=== PATIENT | female | born 1985 ===

== ENCOUNTER → 2017-10-19 19:49 | Observation (INO) ==
[2017-10-19 17:54] LABS: Basophils % 0.2 %; Eosinophils # 0.1 K/mcL (0.0-0.6); Eosinophils % 0.8 %; Hematocrit 36.1 % (35.3-44.9); Hemoglobin 11.4 g/dL (11.5-15.4); Immature Granulocytes % 0.3 % (0-4); Lymphocytes # 1.3 K/mcL (0.6-4.6); Lymphocytes % 15.2 %; Mean Corpuscular HGB Conc 31.6 g/dL (31.6-35.5); Mean Corpuscular Hemoglobin 27.5 pg (28.0-33.3); Monocytes # 0.5 K/mcL (0.0-1.3); Monocytes % 6.1 %; Neutrophils # 6.7 K/mcL (1.6-8.9); Platelet Count 148 K/mcL (140-400); Red Blood Count 4.14 M/mcL (3.82-4.97); Red Cell Distribution Width 13.4 % (11.5-14.5); Segmented Neutrophils % 77.4 %
--- NOTE | 2017-10-19 17:55 | OB/GYN Progress Note ---
Date of Encounter: 10/19/17 Time of Encounter: 17:48 - Assessment and Plan (1) Hypertension affecting in third trimester Current Visit: Yes Status: Acute Serial blood pressures PIH labs drawn and sent to lab (2) Drug use affecting in third trimester Current Visit: Yes Status: Acute Follow up with Dr. Hernandez for scheduled Subutex group (3) Vaginal bleeding in Current Visit: Yes Status: Acute Continuous monitoring SSE to evaluate vaginal bleeding. (4) 32 weeks gestation of Current Visit: Yes Status: Acute Continous monitoring. Draw labs PIH evaluation. Subjective - Subjective Principal diagnosis: Vaginal bleeding Interval history: Billie is a 32-year-old who presents at 32w3d for increased blood pressure in the office of 158/104, lower extremity swelling, and reports vaginal bleeding. Pt states vaginal bleeding occurred once today and once yesterday, pink when she wiped. Denies vaginal leakage, reports decreased movement. Pt is a heroin user, last used 1 week ago. Also takes Subutex and is involved in group here at [place]. Pt states she was seen at [facility] yesterday for the same complaints. Lower extremities bilateral 2+ pitting edema. LLE reflexes 2+, RLE reflexes 3+, no clonus. Antepartum ROS: vaginal bleeding, no loss of fluid, no movement normal, no contractions Objective - Vital Signs Vital Signs: Intake and Output 10/19/17 10/19/17 10/19/17 07:59 15:59 23:59 Other: Weight 78.5 kg Patient Weight 10/19/17 23:59 Weight 78.5 kg - Exam FHR: category 1 FHR comments: 140 bpm, moderate variability. Unable to determine accels due to broken tracing. Auscultation: bilateral: normal Abdomen: Present: normal appearance, soft, gravid Uterus: Present: normal Comments: Deferred SVE at time of note.
[2017-10-19 18:03] LABS: INR 1.1; Prothrombin Time 11.3 Seconds (9.4-12.1)
[2017-10-19 18:06] LABS: Activated Partial Thrombo Time 29.2 Seconds (26.0-36.0)
--- NOTE | 2017-10-19 18:16 | OB/GYN Progress Note ---
Date of Encounter: 10/19/17 Time of Encounter: 18:13 - Assessment and Plan (1) Hypertension affecting in third trimester Current Visit: Yes Status: Acute Serial blood pressures PIH labs drawn and sent to lab (2) Drug use affecting in third trimester Current Visit: Yes Status: Acute Follow up with Dr. Hernandez for scheduled Subutex group (3) Vaginal bleeding in Current Visit: Yes Status: Acute Continuous monitoring SSE to evaluate vaginal bleeding. (4) 32 weeks gestation of Current Visit: Yes Status: Acute Continous monitoring. Draw labs PIH evaluation. Subjective - Subjective Principal diagnosis: PIH evaluation Antepartum ROS: no new complaints Objective - Vital Signs Vital Signs: Intake and Output 10/19/17 10/19/17 10/19/17 07:59 15:59 23:59 Other: Weight 78.5 kg Patient Weight 10/19/17 23:59 Weight 78.5 kg - Exam FHR comments: 135 bpm, moderate variability. No accels, variable decel x 1. Irregular contractions. Cervical dilation: Closed Cervix effacement: Thick station: High Comments: SVE performed. Small amount of white discharge noted. Sample obtained for vaginosis panel.
[2017-10-19 18:24] LABS: Alanine Aminotransferase 17 Units/L (7-52); Aspartate Amino Transferase 37 Units/L (13-39); BUN/Creatinine Ratio 11 (6-26); Blood Urea Nitrogen 7 mg/dL (6-20); Lactate Dehydrogenase 168 Units/L (140-271); Uric Acid 5.2 mg/dL (2.3-7.6); eGFR For African Americans > 60 (> 60); eGFR For Non-African Americans > 60 (> 60)
[2017-10-19 18:26] LABS: Mean Corpuscular Volume 87.2 fL (83.0-100.0)
[2017-10-19 18:57] LABS: Bilirubin,Urine Negative (Negative); Blood,Urine Moderate (Negative); Clarity,Urine Cloudy (Clear); Color,Urine Yellow (Yellow); Glucose,Urine (UA) Normal (Normal); Ketones,Urine Negative (Negative); Leukocyte Esterase,Urine Negative (Negative); Nitrite,Urine Negative (Negative); Protein,Urine 100 mg/dL (Neg-Trace); Specific Gravity,Urine 1.015 (1.010-1.025); Urobilinogen,Urine Normal (Normal)
[2017-10-19 18:58] LABS: Bacteria,Urine None Seen per hpf (None-Few); Hyaline Casts,Urine None Seen per lpf (None-Few); RBC,Urine 30-50 per hpf (0-3); Squamous Epithelial Cell,Urine Many per lpf (None-Few)
[2017-10-19 19:04] LABS: Amphetamine Screen,Urine Negative ng/mL (Cutoff=1000); Barbiturate Screen,Urine Negative ng/mL (Cutoff=200); Benzodiazepines Screen,Urine Negative ng/mL (Cutoff=200); Cannabinoid Screen,Urine Negative ng/mL (Cutoff = 50); Cocaine Screen,Urine Negative ng/mL (Cutoff= 300); Opiate Screen,Urine Positive ng/mL (Cutoff=300); Phencyclidine Screen,Urine Negative ng/mL (Cutoff=25)
[2017-10-19 19:28] LABS: Candida DNA ***DETECTED*** (Not Detect); Gardnerella DNA Not Detected (Not Detect); Trichomonas DNA Not Detected (Not Detect)
[2017-10-19 19:30] LABS: HIV-1&2 Antibody & p24 Ag Nonreactive (Nonreactive); Hepatitis B Surface Antigen Nonreactive (Nonreactive)
--- NOTE | 2017-10-19 19:45 | Discharge Summary ---
Date of Encounter: 10/19/17 Time of Encounter: 19:42 - Discharge Diagnosis (1) Hypertension affecting in third trimester Priority: Secondary Status: Acute Comments: PIH labs WNL (2) Drug use affecting in third trimester Priority: Secondary Status: Acute Comments: +UDS (3) Vaginal bleeding in Priority: Secondary Status: Acute Comments: Speculum exam: no blood noted. Large amount of white discharge noted. Vaginosis panel collected. +yeast:RX for Terazol (4) 32 weeks gestation of Priority: Secondary Status: Acute Comments: Irregular contractions noted Patient reports decreased FM Would prefer extended monitoring: Patient refuses and is signing out AMA. Discussed the risks including labor and IUFD with patient. - Discharge Medications Prescriptions: Terconazole [Terazol 7] 45 gm VG HS 7 Days #1 cream.[email or web address] Home Medications: Buprenorphine HCl [Subutex] 8 mg SL BID 10/19/17 [History] Pnv95/Ferrous Fumarate/FA [ Vitamin Tablet] 1 each PO DAILY 10/19/17 [ History] Terconazole [Terazol 7] 45 gm VG HS 7 Days #1 cream.[email or web address] 10/19/17 [Rx] Allergies/Adverse Reactions: 3 Allergy/AdvReac Type Severity Reaction Status Date / Time No Known Allergies Allergy Verified 10/19/17 17:27 Data Procedures and tests throughout hospitalization: Laboratory Tests 10/19/17 10/19/17 10/19/17 17:20 17:20 17:20 WBC 8.7 RBC 4.14 Hgb 11.4 L Hct 36.1 MCV 87.2 MCH 27.5 L MCHC 31.6 RDW 13.4 Plt Count 148 MPV 12.0 Immature Gran % 0.3 Seg Neutrophils % 77.4 Lymphocytes % 15.2 Monocytes % 6.1 Eosinophils % 0.8 Basophils % 0.2 Neutrophils # 6.7 Lymphocytes # 1.3 Monocytes # 0.5 Eosinophils # 0.1 Basophils # 0.0 PT INR APTT Fibrinogen BUN 7 Creatinine 0.61 Est GFR ( Amer) > 60 Est GFR (Non-Af Amer) > 60 BUN/Creatinine Ratio 11 Uric Acid 5.2 AST 37 ALT 17 Lactate Dehydrogenase 168 Urine Color Urine Clarity Urine pH Ur Specific [place] Urine Protein Urine Glucose (UA) Urine Ketones Urine Blood Urine Nitrite Urine Bilirubin Urine Urobilinogen Ur Leukocyte Esterase Urine Microscopic RBC Urine Microscopic WBC Ur Squamous Epith Cells Urine Bacteria Hyaline Casts Ur Culture Indicated? Urine Opiates Screen Ur Barbiturates Screen Ur Phencyclidine Scrn Ur Amphetamines Screen U Benzodiazepines Scrn Urine Cocaine Screen U Marijuana (THC) Screen [place] species DNA Gardnerella DNA Probe Hep Bs Antigen Nonreactive HIV Ag/Ab Combo Qual Nonreactive Trichomonas DNA Probe Blood Type 10/19/17 10/19/17 10/19/17 17:20 17:20 18:11 WBC RBC Hgb Hct MCV MCH MCHC RDW Plt Count MPV Immature Gran % Seg Neutrophils % Lymphocytes % Monocytes % Eosinophils % Basophils % Neutrophils # Lymphocytes # Monocytes # Eosinophils # Basophils # PT 11.3 INR 1.1 APTT 29.2 Fibrinogen 410 H BUN Creatinine Est GFR ( Amer) Est GFR (Non-Af Amer) BUN/Creatinine Ratio Uric Acid AST ALT Lactate Dehydrogenase Urine Color Urine Clarity Urine pH Ur Specific [place] Urine Protein Urine Glucose (UA) Urine Ketones Urine Blood Urine Nitrite Urine Bilirubin Urine Urobilinogen Ur Leukocyte Esterase Urine Microscopic RBC Urine Microscopic WBC Ur Squamous Epith Cells Urine Bacteria Hyaline Casts Ur Culture Indicated? Urine Opiates Screen Ur Barbiturates Screen Ur Phencyclidine Scrn Ur Amphetamines Screen U Benzodiazepines Scrn Urine Cocaine Screen U Marijuana (THC) Screen [place] species DNA DETECTED A Gardnerella DNA Probe Not Detected Hep Bs Antigen HIV Ag/Ab Combo Qual Trichomonas DNA Probe Not Detected Blood Type A POSITIVE 10/19/17 10/19/17 18:50 18:50 WBC RBC Hgb Hct MCV MCH MCHC RDW Plt Count MPV Immature Gran % Seg Neutrophils % Lymphocytes % Monocytes % Eosinophils % Basophils % Neutrophils # Lymphocytes # Monocytes # Eosinophils # Basophils # PT INR APTT Fibrinogen BUN Creatinine Est GFR ( Amer) Est GFR (Non-Af Amer) BUN/Creatinine Ratio Uric Acid AST ALT Lactate Dehydrogenase Urine Color Yellow Urine Clarity Cloudy A Urine pH 7.0 Ur Specific [place] 1.015 Urine Protein 100 H Urine Glucose (UA) Normal Urine Ketones Negative Urine Blood Moderate H Urine Nitrite Negative Urine Bilirubin Negative Urine Urobilinogen Normal Ur Leukocyte Esterase Negative Urine Microscopic RBC 30-50 H Urine Microscopic WBC 3-5 H Ur Squamous Epith Cells Many H Urine Bacteria None Seen Hyaline Casts None Seen Ur Culture Indicated? NO Urine Opiates Screen Positive H Ur Barbiturates Screen Negative Ur Phencyclidine Scrn Negative Ur Amphetamines Screen Negative U Benzodiazepines Scrn Negative Urine Cocaine Screen Negative U Marijuana (THC) Screen Negative [place] species DNA Gardnerella DNA Probe Hep Bs Antigen HIV Ag/Ab Combo Qual Trichomonas DNA Probe Blood Type Labs on day of discharge: Labs from last 24 hours 10/19/17 10/19/17 10/19/17 18:50 18:50 18:11 WBC RBC Hgb Hct MCV MCH MCHC RDW Plt Count MPV Immature Gran % Seg Neutrophils % Lymphocytes % Monocytes % Eosinophils % Basophils % Neutrophils # Lymphocytes # Monocytes # Eosinophils # Basophils # PT INR APTT Fibrinogen BUN Creatinine Est GFR ( Amer) Est GFR (Non-Af Amer) BUN/Creatinine Ratio Uric Acid AST ALT Lactate Dehydrogenase Urine Color Yellow Urine Clarity Cloudy A Urine pH 7.0 Ur Specific [place] 1.015 Urine Protein 100 H Urine Glucose (UA) Normal Urine Ketones Negative Urine Blood Moderate H Urine Nitrite Negative Urine Bilirubin Negative Urine Urobilinogen Normal Ur Leukocyte Esterase Negative Urine Microscopic RBC 30-50 H Urine Microscopic WBC 3-5 H Ur Squamous Epith Cells Many H Urine Bacteria None Seen Hyaline Casts None Seen Ur Culture Indicated? NO Urine Opiates Screen Positive H Ur Barbiturates Screen Negative Ur Phencyclidine Scrn Negative Ur Amphetamines Screen Negative U Benzodiazepines Scrn Negative Urine Cocaine Screen Negative U Marijuana (THC) Screen Negative [place] species DNA DETECTED A Gardnerella DNA Probe Not Detected Hep Bs Antigen HIV Ag/Ab Combo Qual Trichomonas DNA Probe Not Detected Blood Type 10/19/17 10/19/17 10/19/17 17:20 17:20 17:20 WBC RBC Hgb Hct MCV MCH MCHC RDW Plt Count MPV Immature Gran % Seg Neutrophils % Lymphocytes % Monocytes % Eosinophils % Basophils % Neutrophils # Lymphocytes # Monocytes # Eosinophils # Basophils # PT 11.3 INR 1.1 APTT 29.2 Fibrinogen 410 H BUN Creatinine Est GFR ( Amer) Est GFR (Non-Af Amer) BUN/Creatinine Ratio Uric Acid AST ALT Lactate Dehydrogenase Urine Color Urine Clarity Urine pH Ur Specific [place] Urine Protein Urine Glucose (UA) Urine Ketones Urine Blood Urine Nitrite Urine Bilirubin Urine Urobilinogen Ur Leukocyte Esterase Urine Microscopic RBC Urine Microscopic WBC Ur Squamous Epith Cells Urine Bacteria Hyaline Casts Ur Culture Indicated? Urine Opiates Screen Ur Barbiturates Screen Ur Phencyclidine Scrn Ur Amphetamines Screen U Benzodiazepines Scrn Urine Cocaine Screen U Marijuana (THC) Screen [place] species DNA Gardnerella DNA Probe Hep Bs Antigen Nonreactive HIV Ag/Ab Combo Qual Nonreactive Trichomonas DNA Probe Blood Type A POSITIVE 10/19/17 10/19/17 17:20 17:20 WBC 8.7 RBC 4.14 Hgb 11.4 L Hct 36.1 MCV 87.2 MCH 27.5 L MCHC 31.6 RDW 13.4 Plt Count 148 MPV 12.0 Immature Gran % 0.3 Seg Neutrophils % 77.4 Lymphocytes % 15.2 Monocytes % 6.1 Eosinophils % 0.8 Basophils % 0.2 Neutrophils # 6.7 Lymphocytes # 1.3 Monocytes # 0.5 Eosinophils # 0.1 Basophils # 0.0 PT INR APTT Fibrinogen BUN 7 Creatinine 0.61 Est GFR ( Amer) > 60 Est GFR (Non-Af Amer) > 60 BUN/Creatinine Ratio 11 Uric Acid 5.2 AST 37 ALT 17 Lactate Dehydrogenase 168 Urine Color Urine Clarity Urine pH Ur Specific [place] Urine Protein Urine Glucose (UA) Urine Ketones Urine Blood Urine Nitrite Urine Bilirubin Urine Urobilinogen Ur Leukocyte Esterase Urine Microscopic RBC Urine Microscopic WBC Ur Squamous Epith Cells Urine Bacteria Hyaline Casts Ur Culture Indicated? Urine Opiates Screen Ur Barbiturates Screen Ur Phencyclidine Scrn Ur Amphetamines Screen U Benzodiazepines Scrn Urine Cocaine Screen U Marijuana (THC) Screen [place] species DNA Gardnerella DNA Probe Hep Bs Antigen HIV Ag/Ab Combo Qual Trichomonas DNA Probe Blood Type Date of admission: 10/19/17 16:44 - Patient Status Disposition: Home, Self-Care Condition: Fair - Discharge Instructions Follow Up With: Marco Lemos MD [Partnered Physician] - Additional Instructions: LABOR AND DELIVERY DISCHARGE INSTRUCTIONS Signs and Symptoms to be Reported to your Doctor Immediately: * Sudden gush, continuous or intermittent lead of fluid from vagina (note the time of gush and color of fluid) * Onset of bright red vaginal bleeding with or without pain (if you had a vaginal exam during this visit you may notice some dark red spotting. This is normal.) * Lower abdominal cramping or backache that is premenstrual-like feeling. * More than 6 contractions in one hour. * Burning during urination, having to urinate more frequently or pain in your mid-back. * A change in the baby's activity. This could be an increase or decrease in activity. * Severe headache which does not go away with tylenol. * Sudden swelling in the face, hands, arms and/or legs. * Upper abdominal pain - sometimes associated with heartburn or nausea and is not relieved by Maalox, Mylanta or Tums. * Dizziness or blurred vision or visual disturbances (seeing stars/lights). * Kick Counts One hour after a meal, lay down on one side in a quiet place. Count the number of jg the baby moves during an hour. If less than 6 movements, notify your physician. Diet: *Force fluids - 8-10 tall glasses of fluid per day. May include popsicles and jello. *Limit caffeine - this includes chocolate, coffee, tea, any soft drink containing such as all landy, Shankar Yellow and Mountain Dew Hospital Course COURT MESSENGER Hospital course: Patient signed out AMA after risks and benefits of treatment were discussed. Time Attestation: Total time spent providing and/or coordinating discharge services: Time Spent: Less than 30 minutes - VTE Reasons for not Prescribing Prophylaxis: Treatment not Indicated - Low risk for VTE
[~2017-10-19 19:49] MED LIST: Ringers Solution, Lactated 1,000 ML IVC ONE; Ringers Solution, Lactated 1,000 ML IVC SCH; Ringers Solution, Lactated 2,000 ML ONE
[2017-10-20 11:43] LABS: Rubella IgG Antibody Equivocal (POSITIVE); Varicella Zoster IgG Antibody Positive
== END | disposition home or self-care (01) ==
LOC: 1NENULAB
PROVIDERS: ADMIT Obstetrics & Gynecology; ATTEND Obstetrics & Gynecology